=== PATIENT | male | born 1960 | race Caucasian/White ===

== ENCOUNTER 2021-08-23 07:21 | Day surgery (SDC) | payer OTHER ==
[2021-08-20 11:58] VITALS: BMI 25.1
[2021-08-23] MEDS ORDERED: MIDAZOLAM HCL 2 MG/2 ML SINGLE DOSE VIAL ONE (10:28)
[2021-08-23] MEDS ORDERED: ROPIVACAINE HCL/PF 100 MG/20 ML VIAL ONE (10:28)
[2021-08-23] MEDS ORDERED: ONDANSETRON 4 MG/2 ML VIAL ONE (11:04)
[2021-08-23] MEDS ORDERED: KETOROLAC TROMETHAMINE 30 MG/1 ML VIAL ONE (11:04)
[2021-08-23] MEDS ORDERED: LIDOCAINE HCL 2% JELLY (5 ML/TUBE) ONE (11:04)
[2021-08-23] MEDS ORDERED: PROPOFOL 20 ML ONE (11:04)
[2021-08-23] MEDS ORDERED: DEXAMETHASONE SOD PHOSPHATE 4 MG/1 ML VIAL ONE (11:04)
[2021-08-23] MEDS ORDERED: ceFAZolin SODIUM 1 GM VIAL ONE (11:04)
[2021-08-23] MEDS ORDERED: oxyCODONE HCL 5 MG TABLET PO PRN (12:03)
[2021-08-23] MEDS ORDERED: ONDANSETRON 4 MG/2 ML VIAL IVPUSH PRN (12:03)
[2021-08-23] MEDS: oxyCODONE HCL 5 MG TABLET PO PRN ×2 (15:06→15:55)
[2021-08-23] MEDS ORDERED: oxyCODONE HCL 5 MG TABLET ONE ×2 (15:06→15:55)
[2021-08-23 15:20] VITALS: TEMP 97.8
[2021-08-23 17:08] VITALS: PULSE 81
[2021-08-23 17:13] VITALS: BP 127/72
== END 2021-08-23 16:30 | disposition home or self-care (01) ==
LOC: FASU 07:21
PROVIDERS: ATTEND Orthopaedic Surgery Orthopaedic Surgery of the Spine
PROC: 0LQ10ZZ Repair Right Shoulder Tendon, Open Approach (ICD-10-PCS; 2021-08-23)
PROC: 0PB90ZZ Excision of Right Clavicle, Open Approach (ICD-10-PCS; principal; 2021-08-23 11:47)
PROC: 0MN10ZZ Release Right Shoulder Bursa and Ligament, Open Approach (ICD-10-PCS; 2021-08-23 11:47)
DX: M75.41 Impingement syndrome of right shoulder (principal); M75.121 Complete rotator cuff tear or rupture of right shoulder, not specified as traumatic
CPT/HCPCS: 94760